=== PATIENT | male | born 1950 | race Caucasian/White ===

== ENCOUNTER 2017-02-20 10:25 | Inpatient (IN) | payer MEDICARE, BC ==
[~2017-02-20] VITALS: Ht 172.7 cm; Wt 63.3 kg
[2017-02-20] VITALS (10 sets, daily range): BP systolic 114–160; BP diastolic 62–87; PULSE 88–109; RESP 18–20; TEMP 96.6–98.8; O2SAT 99–100
[2017-02-20] MEDS ORDERED: BLOOD PRESSURE MED PO (10:41)
[2017-02-20] MEDS ORDERED: FISHCAP4 PO (10:41)
[2017-02-20] MEDS ORDERED: ASPI81TA11 PO (10:41)
[2017-02-20] MEDS ORDERED: CHOLESTEROL MED PO (10:41)
[2017-02-20] MEDS ORDERED: SODIUM CHLOR 0.9% 1000 ML INJ 1,000 ML IV ONE (10:55)
[2017-02-20] MEDS ORDERED: SODIUM CHLORIDE 0.9% FLUSH 10 ML FLUSH IVF PRN (11:00)
[2017-02-20 11:10] LABS: AUTOMATED NEUTROPHIL # 12.1 TH/MM3 (1.8-7.7); BASOPHIL % 0.3 % (0.0-2.0); EOSINOPHIL % 0.1 % (0.0-4.0); HEMATOCRIT 21.9 % (39.0-51.0); HEMO FLAGS DIFF FINAL; LYMPH % 7.4 % (9.0-44.0); MEAN CELL VOLUME 100.9 FL (80.0-100.0); MEAN CORPUSCULAR HEMOGLOBIN 34.8 PG (27.0-34.0); MEAN CORPUSCULAR HGB CONC 34.5 % (32.0-36.0); MONO % 5.9 % (0.0-8.0); NEUT % 86.3 % (16.0-70.0); PLATELET COUNT 242 TH/MM3 (150-450); RED BLOOD COUNT 2.17 MIL/MM3 (4.50-5.90); RED CELL DISTRIBUTION WIDTH 13.3 % (11.6-17.2); WHITE BLOOD COUNT 13.9 TH/MM3 (4.0-11.0)
[2017-02-20 11:19] LABS: CHLORIDE 105 MEQ/L (98-107); POTASSIUM 4.4 MEQ/L (3.5-5.1); SODIUM (NA) 137 MEQ/L (136-145)
[2017-02-20 11:22] LABS: APTT (PATIENT) 24.4 SEC (24.3-30.1); INTERNATIONAL NORMALIZED RATIO 0.9 RATIO; PROTHROMBIN TIME - PATIENT 10.4 SEC (9.8-11.6)
[2017-02-20 11:24] LABS: ANION GAP 10 MEQ/L (5-15); BICARBONATE 22.1 MEQ/L (21.0-32.0); BLOOD UREA NITROGEN 44 MG/DL (7-18)
[2017-02-20 11:27] LABS: ALT (GPT) 24 U/L (12-78); AST (GOT) 13 U/L (15-37); GLOMERULAR FILTRATION RATE 67 ML/MIN (>89)
[2017-02-20 11:29] LABS: TOTAL BILIRUBIN ADULT 0.4 MG/DL (0.2-1.0)
[2017-02-20 11:30] LABS: ALKALINE PHOSPHATASE 63 U/L (45-117)
--- NOTE | 2017-02-20 11:30 | RADHPO ---
EXAM DATE/TIME: 02/20/2017 11:15 [place] COMPARISON: No previous studies available for comparison. INDICATIONS : Patient states he has severe left leg pain and passed out this morning. MEDICAL HISTORY : None. SURGICAL HISTORY : None. ENCOUNTER: Initial ACUITY: 1 day PAIN SCORE: 8/10 LOCATION: Left Leg. FINDINGS: PA and lateral views of the chest demonstrate the lungs to be symmetrically aerated without evidence of mass, infiltrate or effusion. There is hyperaeration of both lung dougherty. The cardiomediastinal c ontours are unremarkable. Osseous structures are intact. CONCLUSION: No acute disease. Mirza Coelho MD on February 20, 2017 at 11:28 Board Certified Radiologist. This report was verified electronically.
[2017-02-20] MEDS ORDERED: SODIUM CHLOR 0.9% 250 ML INJ 250 ML IV ONE (12:00)
[2017-02-20] MEDS ORDERED: PANTOPRAZOLE INJ 80 MG in SODIUM CHLORIDE 0.9% INJ 35 ML IV ONE (12:00)
[2017-02-20] MEDS ORDERED: LORazepam 2 MG TAB PO PRN (12:15)
[2017-02-20] MEDS ORDERED: LORazepam 2 MG/ML VIAL IV PUSH PRN ×3 (12:15)
[2017-02-20] MEDS ORDERED: LORazepam 1 MG TAB PO PRN (12:15)
[2017-02-20] MEDS ORDERED: FLUMAZENIL 0.5 MG/5 ML VIAL IV PUSH PRN (12:15)
--- NOTE | 2017-02-20 12:26 | PD ---
HPI Chief Complaint: Pain: Acute or Chronic Time Seen by Provider: 10:42 Travel History International Travel<30 days: No Contact w/Intl Traveler<30days: No Traveled to known affect area: No History of Present Illness HPI Patient is a 66 year old male who comes in complaining of an episode of dizziness and sweating. 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 Per EMS, his pulse was 140 on arrival. He denies chest pain, but says he has some SOB, which he attributes to smoking. He has a long history of sciatic pain, which he has seen multiple doctors for. He denies any new injury, but says the pain has become worse over the past few days as he has increased his activity level. PFSH Past Medical History Cardiovascular Problems: Yes High Cholesterol: Yes Hypertension: Yes Medical other: Yes (SCIATICA) Influenza Vaccination: Yes Past Surgical History Other Surgery: Yes (VASTECTOMY) Social History Alcohol Use: Yes (DAILY WINE) Tobacco Use: Yes (3/4 PPD) Allergies-Medications (Allergen,Severity, Reaction): Coded Allergies: No Known Allergies (Unverified , 02/20/17) Reported Meds & Prescriptions Reported Meds & Active Scripts Active Reported [Blood Pressure Med] 1 Tab PO DAILY [Cholesterol Med] 1 Tab PO DAILY Aspirin EC (Aspirin) 81 Mg Tabdr 81 Mg PO DAILY Fish Oil + D3 (Fish Oil-Cholecalciferol) 1,200-1,000 Mg-Unit Cap 1 Cap PO DAILY Review of Systems Except as stated in HPI: all other systems reviewed are Neg General / Constitutional: No: Fever, Chills Eyes: No: Blurred Vision HENT: Positive: Lightheadedness, No: Headaches Cardiovascular: Positive: Palpitations, No: Chest Pain or Discomfort Respiratory: Positive: Shortness of Breath, No: Cough Gastrointestinal: No: Nausea, Vomiting, Abdominal Pain Musculoskeletal: Positive: Pain Skin: No Rash, No Change in Pigmentation Neurologic: Positive: Dizziness, No: Weakness Physical Exam Narrative GENERAL: Awake and alert, in no acute distress. SKIN: Focused skin assessment warm/dry. HEAD: Atraumatic. Normocephalic. EYES: Pupils equal and round. No scleral icterus. ENT: Mucous membranes pink and moist. NECK: Trachea midline. No JVD. CARDIOVASCULAR: Tachycardia. No murmur appreciated. RESPIRATORY: No accessory muscle use. Clear to auscultation. Breath sounds equal bilaterally. GASTROINTESTINAL: Abdomen soft, non-tender, nondistended. RECTAL: Bright red blood per rectum. No masses or tenderness. MUSCULOSKELETAL: No obvious deformities. No clubbing. No cyanosis. No edema. NEUROLOGICAL: Awake and alert. No obvious cranial nerve deficits. Motor grossly within normal limits. Normal speech. PSYCHIATRIC: Appropriate mood and affect; insight and judgment normal. Data Data Last Documented VS Vital Signs Date Time Temp Pulse Resp B/P Pulse Ox O2 Delivery O2 Flow Rate FiO2 02/20/17 11:04 100 Room Air 02/20/17 10:29 97.9 109 18 159/80 Orders Electrocardiogram (02/20/17 10:55) Complete Blood Count With Diff (02/20/17 10:55) Comprehensive Metabolic Panel (02/20/17 10:55) Troponin I (02/20/17 10:55) Act Partial Throm Time (Ptt) (02/20/17 10:55) Prothrombin Time / Inr (Pt) (02/20/17 10:55) Chest, Pa & Lat (02/20/17 10:55) Ecg Monitoring (02/20/17 10:55) Iv Access Insert/Monitor (02/20/17 10:55) Oximetry (02/20/17 10:55) Sodium Chloride 0.9% Flush (Ns Flush) (02/20/17 11:00) Sodium Chlor 0.9% 1000 Ml Inj (Ns 1000 M (02/20/17 10:55) Red Blood Cells (Rbc) (02/20/17 11:56) Blood Product Administration .UPON TRANSFUSION (02/20/17 11:56) Sodium Chlor 0.9% 250 Ml Inj (Ns 250 Ml (02/20/17 12:00) Type And Screen (02/20/17 11:56) Pantoprazole Inj (Protonix Inj) (02/20/17 12:00) Pantoprazole Inj (Protonix Inj) (02/20/17 12:00) Admit Order (Ed Use Only) (02/20/17 ) Labs Laboratory Tests Test 02/20/17 11:02 White Blood Count 13.9 TH/MM3 Red Blood Count 2.17 MIL/MM3 Hemoglobin 7.6 GM/DL Hematocrit 21.9 % Mean Corpuscular Volume 100.9 FL Mean Corpuscular Hemoglobin 34.8 PG Mean Corpuscular Hemoglobin 34.5 % Concent Red Cell Distribution Width 13.3 % Platelet Count 242 TH/MM3 Mean Platelet Volume 7.4 FL Neutrophils (%) (Auto) 86.3 % Lymphocytes (%) (Auto) 7.4 % Monocytes (%) (Auto) 5.9 % Eosinophils (%) (Auto) 0.1 % Basophils (%) (Auto) 0.3 % Neutrophils # (Auto) 12.1 TH/MM3 Lymphocytes # (Auto) 1.0 TH/MM3 Monocytes # (Auto) 0.8 TH/MM3 Eosinophils # (Auto) 0.0 TH/MM3 Basophils # (Auto) 0.0 TH/MM3 CBC Comment DIFF FINAL Differential Comment Prothrombin Time 10.4 SEC Prothromb Time International 0.9 RATIO Ratio Activated Partial 24.4 SEC Thromboplast Time Sodium Level 137 MEQ/L Potassium Level 4.4 MEQ/L Chloride Level 105 MEQ/L Carbon Dioxide Level 22.1 MEQ/L Anion Gap 10 MEQ/L Blood Urea Nitrogen 44 MG/DL Creatinine 1.10 MG/DL Estimat Glomerular Filtration 67 ML/MIN Rate Random Glucose 198 MG/DL Calcium Level 8.3 MG/DL Total Bilirubin 0.4 MG/DL Aspartate Amino Transf 13 U/L (AST/SGOT) Alanine Aminotransferase 24 U/L (ALT/SGPT) Alkaline Phosphatase 63 U/L Troponin I LESS THAN 0.02 NG/ML Total Protein 6.2 GM/DL Albumin 3.3 GM/DL [facility] Medical Decision Making Medical Screen Exam Complete: Yes Emergency Medical Condition: Yes Interpretation(s) ECG shows sinus tach at 104, frequent PVCs. Differential Diagnosis ACS vs dehydration vs GI bleed vs sciatic pain Narrative Course Patient is a 66-year-old male comes in after an episode of dizziness and diaphoresis. He also complains of sciatic pain in his leg. Patient is found to be tachycardic. IV established, labs sent. Labs show a hemoglobin of 7.6. Rectal exam performed shows bright red blood per rectum. Patient was given IV fluids. Given 2 units of blood. Started on Protonix. GI consulted. Patient admitted for further management. Diagnosis Primary Impression: GI bleed Qualified Code: K92.2 - Gastrointestinal hemorrhage, unspecified gastrointestinal hemorrhage type Admitting Information Admitting Physician Requests: Admit Condition: Stable Bessy Michele MD February 20, 2017 12:26
[2017-02-20] MEDS ORDERED: ONDANSETRON HCL 4 MG/2 ML VIAL IV PUSH PRN (12:30)
[2017-02-20] MEDS ORDERED: ENALAPRILAT 1.25 MG/ML VIAL IV PUSH PRN (12:30)
--- NOTE | 2017-02-20 12:37 | HHI.HP ---
[facility] Primary Care Physician Unknown Admission Diagnosis GI bleed Diagnoses: (1) GI bleed Diagnosis: Principal Chief Complaint: ' lightheadedness'. Travel History International Travel<30 Days: No Contact w/Intl Traveler <30 Da: No Traveled to Known Affected Are: No History of Present Illness patient is a 66 y/o male with history of hypertension and chronic low back pain who presented to ER with lightheadedness. he says that when he went to [facility] earlier today he started to feel dizzy and sweaty. he sat on a chair for a few minutes but when the symptoms didn't resolve he decided to come to ER. he denies any chest pain,abdominal pain, vomiting. he says that he's had some ' black stools' over the past one week. he says that he took two advil last night but he doesn't take NSAIDs as much. he admits to drinking two-three glasses of wine everyday. Review of Systems Constitutional: COMPLAINS OF: Diaphoretic episodes, Dizziness, DENIES: Fever, Weight loss, Chills, Night Sweats Eyes: DENIES: Blurred vision, Diplopia, Vision loss, Double Vision Ears, nose, mouth, throat: DENIES: Tinnitus, Vertigo, Throat pain, Epistaxis Respiratory: DENIES: Apneas, Cough, Snoring, Wheezing, Hemoptysis, Sputum production, Shortness of breath Cardiovascular: DENIES: Chest pain, Palpitations, Syncope, Dyspnea on Exertion , PND, Lower Extremity Edema, Orthopnea, Claudication Gastrointestinal: DENIES: Abdominal pain, Black stools, Bloody stools, Constipation, Diarrhea, Nausea, Vomiting, Difficulty Swallowing, Anorexia Genitourinary: DENIES: Urinary frequency, Urgency, Hematuria, Dysuria Musculoskeletal: DENIES: Joint pain, Muscle aches, Stiffness, Joint Swelling Integumentary: DENIES: Rash Neurologic: DENIES: Abnormal gait, Headache, Localized weakness, Paresthesias, Seizures, Speech Problems, Tremor, Poor Balance Psychiatric: DENIES: Anxiety, Confusion, Mood changes, Depression, Hallucinations, Agitation, Suicidal Ideation, Homicidal Ideation, Delusions Past Family Social History Past Medical History hypertension chronic low back pain Past Surgical History vasectomy. Reported Medications [Blood Pressure Med] 1 Tab PO DAILY [Cholesterol Med] 1 Tab PO DAILY Aspirin EC (Aspirin) 81 Mg Tabdr 81 Mg PO DAILY Fish Oil + D3 (Fish Oil-Cholecalciferol) 1,200-1,000 Mg-Unit Cap 1 Cap PO DAILY Allergies: Coded Allergies: No Known Allergies (Unverified , 02/20/17) Active Ordered Medications Current Medications Sodium Chloride 2 ml 2 ml UNSCH PRN IVF FLUSH AFTER USING IV ACCESS; Start at 11:00 Sodium Chloride 1,000 ml @ 1,000 mls/hr Q1H ONCE IV Last administered on t 11:30; Start 02/20/17 at 10:55; Stop 02/20/17 at 11:54; Status DC Sodium Chloride 250 ml @ 15 mls/hr ONCE ONCE IV ; Start 02/20/17 at 12:00; Stop 02/21/17 at 04:39 Pantoprazole Sodium 80 mg/ Sodium Chloride 100 ml @ 10 mls/hr CONTINUOUS IV ; Start 02/20/17 at 12:00 Pantoprazole Sodium/Sodium Chloride (Protonix Inj/NS Inj) 35 ml @ 420 mls/hr BOLUS ONCE IV ; Start 02/20/17 at 12:00; Stop 02/20/17 at 12:04; Status DC Family History heart disease in father. dementia in mother. Social History smokes 15 cigarettes a day- drinks two-three glasses of wine daily. Physical Exam Vital Signs Vital Signs Date Time Temp Pulse Resp B/P Pulse Ox O2 Delivery O2 Flow Rate FiO2 02/20/17 11:04 100 Room Air 02/20/17 10:29 97.9 109 18 159/80 100 Physical Exam GENERAL: This is a well-nourished, well-developed patient, in no apparent distress. SKIN: No rashes, ecchymoses or lesions. Cool and dry. HEAD: Atraumatic. Normocephalic. No temporal or scalp tenderness. EYES: pale conjunctivae ENT: Nose without bleeding, purulent drainage or septal hematoma. Throat without erythema, tonsillar hypertrophy or exudate. Uvula midline. Airway patent. NECK: Trachea midline. No JVD or lymphadenopathy. Supple, nontender, no meningeal signs. CARDIOVASCULAR: Regular rate and rhythm without murmurs, gallops, or rubs. RESPIRATORY: Clear to auscultation. Breath sounds equal bilaterally. No wheezes , rales, or rhonchi. GASTROINTESTINAL: Abdomen soft, non-tender, nondistended. No hepato-splenomegaly , or palpable masses. No guarding. MUSCULOSKELETAL: Extremities without clubbing, cyanosis, or edema. No joint tenderness, effusion, or edema noted. No calf tenderness. Negative Homans sign bilaterally. NEUROLOGICAL: Awake and alert. Cranial nerves II through XII intact. Motor and sensory grossly within normal limits. Five out of 5 muscle strength in all muscle groups. Normal speech. Laboratory Laboratory Tests Test 02/20/17 11:02 White Blood Count 13.9 Red Blood Count 2.17 Hemoglobin 7.6 Hematocrit 21.9 Mean Corpuscular Volume 100.9 Mean Corpuscular Hemoglobin 34.8 Mean Corpuscular Hemoglobin 34.5 Concent Red Cell Distribution Width 13.3 Platelet Count 242 Mean Platelet Volume 7.4 Neutrophils (%) (Auto) 86.3 Lymphocytes (%) (Auto) 7.4 Monocytes (%) (Auto) 5.9 Eosinophils (%) (Auto) 0.1 Basophils (%) (Auto) 0.3 Neutrophils # (Auto) 12.1 Lymphocytes # (Auto) 1.0 Monocytes # (Auto) 0.8 Eosinophils # (Auto) 0.0 Basophils # (Auto) 0.0 CBC Comment DIFF FINAL Differential Comment Prothrombin Time 10.4 Prothromb Time International 0.9 Ratio Activated Partial 24.4 Thromboplast Time Sodium Level 137 Potassium Level 4.4 Chloride Level 105 Carbon Dioxide Level 22.1 Anion Gap 10 Blood Urea Nitrogen 44 Creatinine 1.10 Estimat Glomerular Filtration 67 Rate Random Glucose 198 Calcium Level 8.3 Total Bilirubin 0.4 Aspartate Amino Transf 13 (AST/SGOT) Alanine Aminotransferase 24 (ALT/SGPT) Alkaline Phosphatase 63 Troponin I LESS THAN 0.02 Total Protein 6.2 Albumin 3.3 Result Diagram: 02/20/17 1102 02/20/17 1102 Imaging Last Impressions Chest X-Ray 02/20/17 1055 Signed Impressions: Service Date/Time: Monday, February 20, 2017 11:15 - CONCLUSION: No acute disease. Mirza Coelho MD Assessment and Plan Assessment and Plan A/P - GI bleed keep NPO and start on IV fluid- continue with PPI- will consult GI -anemia due to GI bleed/ alcohol abuse to receive two units of PRBC- continue to monitor H/H- anemia work-up; irone panel- vitamin B12/ folic acid level -history of hypertension; vasotec prn for now- will monitor BP -alcohol abuse; CIWA protocol- start thiamine. -DVT prophylaxis with SCD's Discussed Condition With ER physician and the patient. Physician Certification 2 Midnight Certification Type: Admission for Inpatient Services Order for Inpatient Services The services are ordered in accordance with Medicare regulations or non- Medicare payer requirements, as applicable. In the case of services not specified as inpatient-only, they are appropriately provided as inpatient services in accordance with the 2-midnight benchmark. Estimated LOS (days): 2 days is the estimated time the patient will need to remain in the hospital, assuming treatment plan goals are met and no additional complications. Post-Hospital Plan: Home Problem Qualifiers (1) GI bleed: Qualified Code: K92.2 - Gastrointestinal hemorrhage, unspecified gastrointestinal hemorrhage type Tab Deleon MD February 20, 2017 12:37 Tab Deleon MD February 20, 2017 12:37
[2017-02-20] MEDS: SODIUM CHLOR 0.9% 1000 ML INJ 1,000 ML IV SCH ×2 (13:02→22:47)
[2017-02-20] MEDS: PANTOPRAZOLE INJ 80 MG in SODIUM CHLORIDE 0.9% INJ 100 ML IV SCH (13:02)
[2017-02-20 14:56] LABS: FERRITIN 49 NG/ML (26-388); TRANSFERRIN IRON PROFILE 257 MG/DL (200-360)
[2017-02-20] MEDS: HYDROmorphone HCL PF 1 MG/ML VIAL IV PRN ×2 (16:30→22:42)
[2017-02-20] MEDS: LORazepam 2 MG/ML VIAL IV PUSH PRN ×2 (16:30→22:44)
[2017-02-20] MEDS: THIAMINE INJ 100 MG in SODIUM CHLORIDE 0.9% INJ 100 ML IV SCH (18:31)
[2017-02-20] MEDS ORDERED: PEG (High)/E-LYTE SOLN 4000 ML BTL PO ONE (20:30)
[2017-02-21] VITALS: BP 111/58; PULSE 76; RESP 18; TEMP 97.9; O2SAT 98
[2017-02-21] MEDS: PANTOPRAZOLE INJ 80 MG in SODIUM CHLORIDE 0.9% INJ 100 ML IV SCH ×2 (00:50→12:42)
[2017-02-21 04:00] VITALS: BP 128/68; PULSE 88; RESP 20; TEMP 98.1; O2SAT 96
[2017-02-21 06:57] LABS: AUTOMATED NEUTROPHIL # 5.2 TH/MM3 (1.8-7.7); BASOPHIL % 0.5 % (0.0-2.0); EOSINOPHIL # 0.1 TH/MM3 (0-0.4); EOSINOPHIL % 1.1 % (0.0-4.0); HEMATOCRIT 23.3 % (39.0-51.0); HEMO FLAGS DIFF FINAL; LYMPH % 22.1 % (9.0-44.0); LYMPHOCYTE # 1.8 TH/MM3 (1.0-4.8); MEAN CELL VOLUME 95.4 FL (80.0-100.0); MEAN CORPUSCULAR HEMOGLOBIN 32.5 PG (27.0-34.0); MONO % 12.3 % (0.0-8.0); PLATELET COUNT 157 TH/MM3 (150-450); RED BLOOD COUNT 2.44 MIL/MM3 (4.50-5.90); RED CELL DISTRIBUTION WIDTH 15.8 % (11.6-17.2); WHITE BLOOD COUNT 8.1 TH/MM3 (4.0-11.0)
[2017-02-21 07:05] VITALS: BP 129/65; PULSE 78; RESP 20; TEMP 98.3; O2SAT 97
[2017-02-21 07:25] LABS: BICARBONATE 23.9 MEQ/L (21.0-32.0); POTASSIUM 3.2 MEQ/L (3.5-5.1)
--- NOTE | 2017-02-21 08:14 | GIPROC ---
[facility] [address] [place] [address], [id number] EGD PROCEDURE REPORT EXAM DATE: 02/21/2017 PATIENT NAME: Dariel Ordonez MR #: [id number] BIRTHDATE: 1950 ATTENDING: David Segovia MD ORDER #: [id number] MEETING COORDINATOR: Shawna Velasco and Graeme Leiva STATUS: inpatient INDICATIONS: The patient is a 66 yr old male here for an EGD due to anemia and melena PROCEDURE PERFORMED: EGD w/ biopsy MEDICATIONS: None and Per Anesthesia. TOPICAL ANESTHETIC: none CONSENT: The patient understands the risks and benefits of the procedure and understands that these risks include, but are not limited to: sedation, allergic reaction, infection, perforation and/or bleeding. Alternative means of evaluation and treatment include, among others: physical exam, x-rays, and/or surgical intervention. The patient elects to proceed with this endoscopic procedure. medical equipment was checked for proper function. Hand hygiene and appropriate measures for infection prevention was taken. After the risks, benefits and alternatives of the procedure were thoroughly explained, Informed consent was verified, confirmed and timeout was successfully executed by the treatment team. The patient was anesthetized with topical anesthesia and the EC-[id number] (Pedi C) endoscope was introduced through the mouth and advanced to the second portion of the duodenum. Retroflexed views revealed no abnormalities The gastroscope was then slowly withdrawn and removed. Duodenal ulcer in the bulb no sign of active bleed now. Gastritis Bx from antrum. ADVERSE EVENTS: There were no complications. IMPRESSIONS: 1. Duodenal ulcer in the bulb no sign of active bleed now 2. Gastritis Bx from antrum 3. Retroflexed views revealed no abnormalities RECOMMENDATIONS: 1. Await biopsy results. Biopsy results will not be ready for 7-10 days. If you don't hear from us in two weeks, call our office for biopsy results. 2. Continue PPI 3. Avoid NSAIDS 4. No ETOH PATIENT CONDITION: stable DISPOSITION: Inpatient REPEAT EXAM: Return as needed for EGD David Segovia MD eSigned: David Segovia MD 02/21/2017 8:14 AM cc: PATIENT NAME: Dariel Ordonez MR#: [id number]
[2017-02-21] MEDS: SODIUM CHLOR 0.9% 1000 ML INJ 1,000 ML IV SCH ×2 (08:15→12:42)
--- NOTE | 2017-02-21 08:25 | HHI.GIFU ---
Subjective Remarks feels ok, stated no more bleeding since last night, took the prep well Objective Vitals I&O Vital Signs Date Time Temp Pulse Resp B/P Pulse Ox O2 Delivery O2 Flow Rate FiO2 02/21/17 07:05 98.3 78 20 129/65 97 02/21/17 04:00 98.1 88 20 128/68 96 02/21/17 00:00 97.9 76 18 111/58 98 02/20/17 20:44 97.0 88 20 148/72 02/20/17 20:00 97.8 97 20 114/62 100 02/20/17 19:37 98.8 100 20 149/87 99 02/20/17 17:00 18 02/20/17 16:15 98.5 105 18 146/69 100 02/20/17 16:00 97.1 96 19 155/64 100 02/20/17 15:52 96.6 101 18 152/75 99 02/20/17 13:06 105 144/69 02/20/17 12:28 96 20 160/73 100 02/20/17 11:04 100 Room Air 02/20/17 10:29 97.9 109 18 159/80 100 I/O 02/20/17 02/20/17 02/20/17 02/21/17 02/21/17 02/21/17 07:00 15:00 23:00 07:00 15:00 23:00 Intake Total 4850 ml 0 ml Balance 4850 ml 0 ml Intake Oral 3000 ml 0 ml IV Total 1500 ml Packed Cells 350 ml # Voids 1 6 # Bowel Movements 1 10 Laboratory Laboratory Tests Test 02/20/17 02/20/17 02/20/17 02/21/17 11:02 12:15 12:29 06:40 White Blood Count 13.9 8.1 Red Blood Count 2.17 2.44 Hemoglobin 7.6 7.9 Hematocrit 21.9 23.3 Mean Corpuscular Volume 100.9 95.4 Mean Corpuscular Hemoglobin 34.8 32.5 Mean Corpuscular Hemoglobin 34.5 34.0 Concent Red Cell Distribution Width 13.3 15.8 Platelet Count 242 157 Mean Platelet Volume 7.4 7.4 Neutrophils (%) (Auto) 86.3 64.0 Lymphocytes (%) (Auto) 7.4 22.1 Monocytes (%) (Auto) 5.9 12.3 Eosinophils (%) (Auto) 0.1 1.1 Basophils (%) (Auto) 0.3 0.5 Neutrophils # (Auto) 12.1 5.2 Lymphocytes # (Auto) 1.0 1.8 Monocytes # (Auto) 0.8 1.0 Eosinophils # (Auto) 0.0 0.1 Basophils # (Auto) 0.0 0.0 CBC Comment DIFF FINAL DIFF FINAL Differential Comment Prothrombin Time 10.4 Prothromb Time International 0.9 Ratio Activated Partial 24.4 Thromboplast Time Sodium Level 137 Potassium Level 4.4 Chloride Level 105 Carbon Dioxide Level 22.1 Anion Gap 10 Blood Urea Nitrogen 44 Creatinine 1.10 Estimat Glomerular Filtration 67 Rate Random Glucose 198 Calcium Level 8.3 Iron Level 109 Total Iron Binding Capacity 360 Percent Iron Saturation 30.3 Ferritin 49 Total Bilirubin 0.4 Aspartate Amino Transf 13 (AST/SGOT) Alanine Aminotransferase 24 (ALT/SGPT) Alkaline Phosphatase 63 Troponin I LESS THAN 0.02 Total Protein 6.2 Albumin 3.3 Vitamin B12 Level 345 Folate 13.4 Blood Type O POSITIVE O POSITIVE Antibody Screen NEGATIVE Crossmatch Leukocyte-Reduced Red Blood Cells Blood Bank Comment Physical Exam HEENT: Pupils round and reactive to light; normocephalic; atraumatic; no jaundice. Throat is clear. NECK: Neck is supple, no JVD, no lymphadenopathy. CHEST: Chest is clear to auscultation and percussion. CARDIAC: Regular rate and rhythm with no murmur gallop or rubs. ABDOMEN: Soft, nondistended, nontender; no hepatosplenomegaly; bowel sounds are present in all four quadrants. EXTREMITIES: No clubbing, cyanosis, or edema. SKIN: Normal; no rash; no jaundice. CRISIS MENTAL HEALTH THERAPIST: No focal deficits; alert and oriented times three. Assessment and Plan Plan GI bleed, none today, EGD showed gastritis and duodenal ulcer, colon showed multiple polyps and diverticolosis recommendation start liquid diet advance as tolerated monitor HH PRBC if needed no NSAIDs no ETOH David Segovia MD February 21, 2017 08:25
[2017-02-21] MEDS ORDERED: PROPOFOL 200 MG/20 ML AMP IV ONE (08:50)
--- NOTE | 2017-02-21 09:44 | EKG ---
Date Performed: 02/20/2017 Time Performed: 11:25:02 PTAGE: 66 years EKG: Sinus tachycardia with PVC(s) Inferior/lateral ST-T changes are nonspecific Borderline ECG NO PREVIOUS TRACING DOCTOR: Travon Corona Interpretating Date/Time 02/21/2017 09:42:05
[2017-02-21] MEDS ORDERED: POTASSIUM CHLOR 20 MEQ PREMIX 100 ML IV ONE (10:45)
--- NOTE | 2017-02-21 10:49 | HHI.PR ---
Subjective Remarks resting comfortably. feels better today. no rectal bleed. no further dizziness. denies chest pain or sob. Objective Vitals Vital Signs Date Time Temp Pulse Resp B/P Pulse Ox O2 Delivery O2 Flow Rate FiO2 02/21/17 08:40 88 16 138/78 100 02/21/17 08:30 80 18 139/69 100 02/21/17 08:20 98.4 95 18 131/73 97 02/21/17 07:05 98.3 78 20 129/65 97 02/21/17 04:00 98.1 88 20 128/68 96 02/21/17 00:00 97.9 76 18 111/58 98 02/20/17 20:44 97.0 88 20 148/72 02/20/17 20:00 97.8 97 20 114/62 100 02/20/17 19:37 98.8 100 20 149/87 99 02/20/17 17:00 18 02/20/17 16:15 98.5 105 18 146/69 100 02/20/17 16:00 97.1 96 19 155/64 100 02/20/17 15:52 96.6 101 18 152/75 99 02/20/17 13:06 105 144/69 02/20/17 12:28 96 20 160/73 100 02/20/17 11:04 100 Room Air I/O 02/20/17 02/20/17 02/20/17 02/21/17 02/21/17 02/21/17 07:00 15:00 23:00 07:00 15:00 23:00 Intake Total 4850 ml 500 ml Balance 4850 ml 500 ml Intake Oral 3000 ml 0 ml IV Total 1500 ml Packed Cells 350 ml Other 500 ml # Voids 1 6 # Bowel Movements 1 10 Result Diagram: 02/21/17 0640 02/21/17 0640 Imaging Last Impressions Chest X-Ray 02/20/17 1055 Signed Impressions: Service Date/Time: Monday, February 20, 2017 11:15 - CONCLUSION: No acute disease. Mirza Coelho MD Objective Remarks GENERAL: This is a well-nourished, well-developed patient, in no apparent distress. CARDIOVASCULAR: Regular rate and regular rhythm without murmurs, gallops, or rubs. RESPIRATORY: Clear to auscultation. Breath sounds equal bilaterally. No wheezes , rales, or rhonchi. GASTROINTESTINAL: Abdomen soft, non-tender, nondistended. Normal, active bowel sounds MUSCULOSKELETAL: Extremities without clubbing, cyanosis, or edema. NEURO: Alert & Oriented x4 to person, place, time, situation. Moves all ext x4 Procedures EGD Medications and IVs Current Medications Sodium Chloride 2 ml 2 ml UNSCH PRN IVF FLUSH AFTER USING IV ACCESS; Start at 11:00 Sodium Chloride 1,000 ml @ 1,000 mls/hr Q1H ONCE IV Last administered on 11:30; Start 02/20/17 at 10:55; Stop 02/20/17 at 11:54; Status DC Sodium Chloride 250 ml @ 15 mls/hr ONCE ONCE IV Last administered on 12:00; Start 02/20/17 at 12:00; Stop 02/21/17 at 04:39; Status DC Pantoprazole Sodium 80 mg/ Sodium Chloride 100 ml @ 10 mls/hr CONTINUOUS IV Last administered on 02/21/17 00:50; Start 02/20/17 at 12:00 Pantoprazole Sodium 80 mg/ Sodium Chloride 35 ml @ 420 mls/hr BOLUS ONCE IV Last administered on 02/20/17 12:56; Start 02/20/17 at 12:00; Stop 02/20/17 at 12:04; Status DC Sodium Chloride (NS 1000 ml Inj) 1,000 ml @ 100 mls/hr Q10H IV Last administered on 02/21/17 08:15; Start 02/20/17 at 12:15 Flumazenil (Romazicon Inj) 0.2 mg Q1M PRN IV PUSH SEE LABEL COMMENTS; Start at 12:15 Lorazepam (Ativan) 1 mg Q4H PRN PO CIWA 8 - 10; Start 02/20/17 at 12:15 Lorazepam (Ativan Inj) 1 mg Q4H PRN IV PUSH CIWA 8 - 10 Last administered on 22:44; Start 02/20/17 at 12:15 Lorazepam (Ativan) 2 mg Q2H PRN PO CIWA 11-14; Start 02/20/17 at 12:15 Lorazepam (Ativan Inj) 2 mg Q2H PRN IV PUSH CIWA 11-14; Start 02/20/17 at 12:15 Lorazepam (Ativan Inj) 2 mg Q1H PRN IV PUSH CIWA 15-20; Start 02/20/17 at 12:15 Lorazepam 2 mg 2 mg Q15M PRN IV PUSH CIWA > 20; Start 02/20/17 at 12:15 Thiamine HCl/ Sodium Chloride (Thiamine Inj/NS Inj) 101 ml @ 101 mls/hr DAILY IV Last administered on 02/20/17 18:31; Start 02/20/17 at 14:30 Enalaprilat (Vasotec Inj) 1.25 mg Q8H PRN IV PUSH SBP>180, DBP>110; Start at 12:30 Ondansetron HCl (Zofran Inj) 4 mg Q8HR PRN IV PUSH NAUSEA; Start 02/20/17 at 12 :30 Hydromorphone HCl (Dilaudid Pf Inj) 0.2 mg Q4H PRN IV PAIN Last administered on 02/20/17 22:42; Start 02/20/17 at 15:30 Polyethylene Glycol/ Electrolytes (Colyte Liq) 4,000 ml ONCE ONCE PO Last administered on 02/20/17 20:41; Start 02/20/17 at 20:30; Stop 02/20/17 at 20:31 ; Status DC Propofol (Diprivan 200 Mg/20 ml Inj) 1,000 mg STK-MED ONCE IV ; Start 02/21/17 at 08:50; Stop 02/21/17 at 08:51; Status DC A/P Assessment and Plan A/P - GI bleed GI consult appreciated- s/p EGD with duodenal ulcer and gastritis- biopsy pending. continue PPI. -anemia due to GI bleed/ alcohol abuse s/p PRBC transfusion- continue to monitor H/H- -history of hypertension; vasotec prn for now- will monitor BP -alcohol abuse; CIWA protocol- started thiamine. advised to stop drinking. -DVT prophylaxis with SCD's Discharge Planning dc home later today or in am if H/H stable. see med list. advised to stop drinking. f/u; pcp and GI. d/w the patient and his . Tab Deleon MD February 21, 2017 10:49
[2017-02-21] MEDS ORDERED: PROT40TA PO (10:50)
--- NOTE | 2017-02-21 10:50 | HHI.DCPOC ---
Discharge Care Plan Diagnosis: (1) GI bleed Your Health Problems Are: Bleeding Tendency Goals to Promote Your Health * To prevent worsening of your condition and complications * To maintain your health at the optimal level Directions to Meet Your Goals Take your medications as prescribed Follow your dietary instruction Follow activity as directed Keep your appointments as scheduled Take your immunizations and boosters as scheduled If your symptoms worsen call your PCP, if no PCP go to Urgent Care Center or Emergency Room Smoking is Dangerous to Your Health. Avoid second hand smoke Call the 24-hour hour crisis hotline for domestic abuse at Tab Deleon MD February 21, 2017 10:50
--- NOTE | 2017-02-21 10:51 | HHI.DS ---
Discharge Summary Admission Date February 20, 2017 at 12:11 Discharge Date: February 21, 2017 Admitting Diagnosis GI bleed (1) GI bleed ICD Code: K92.2 Diagnosis: Principal Procedures EGD Brief History - From Admission patient is a 66 y/o male with history of hypertension and chronic low back pain who presented to ER with lightheadedness. he says that when he went to [facility] earlier today he started to feel dizzy and sweaty. he sat on a chair for a few minutes but when the symptoms didn't resolve he decided to come to ER. he denies any chest pain,abdominal pain, vomiting. he says that he's had some ' black stools' over the past one week. he says that he took two advil last night but he doesn't take NSAIDs as much. he admits to drinking two-three glasses of wine everyday. CBC/BMP: 02/21/17 0640 02/21/17 0640 Significant Findings Laboratory Tests Test 02/20/17 02/21/17 11:02 06:40 White Blood Count 13.9 TH/MM3 (4.0-11.0) Red Blood Count 2.17 MIL/MM3 2.44 MIL/MM3 (4.50-5.90) (4.50-5.90) Hemoglobin 7.6 GM/DL 7.9 GM/DL (13.0-17.0) (13.0-17.0) Hematocrit 21.9 % 23.3 % (39.0-51.0) (39.0-51.0) Mean Corpuscular Volume 100.9 FL (80.0-100.0) Mean Corpuscular Hemoglobin 34.8 PG (27.0-34.0) Neutrophils (%) (Auto) 86.3 % (16.0-70.0) Lymphocytes (%) (Auto) 7.4 % (9.0-44.0) Neutrophils # (Auto) 12.1 TH/MM3 (1.8-7.7) Blood Urea Nitrogen 44 MG/DL (7-18) 23 MG/DL (7-18) Estimat Glomerular Filtration 67 ML/MIN (>89) Rate Random Glucose 198 MG/DL (74-106) Calcium Level 8.3 MG/DL 7.1 MG/DL (8.5-10.1) (8.5-10.1) Aspartate Amino Transf 13 U/L (15-37) (AST/SGOT) Troponin I LESS THAN 0.02 NG/ML (0.02-0.05) Total Protein 6.2 GM/DL (6.4-8.2) Albumin 3.3 GM/DL (3.4-5.0) Monocytes (%) (Auto) 12.3 % (0.0-8.0) Monocytes # (Auto) 1.0 TH/MM3 (0-0.9) Potassium Level 3.2 MEQ/L (3.5-5.1) Chloride Level 113 MEQ/L (98-107) Imaging Last Impressions Chest X-Ray 02/20/17 1055 Signed Impressions: Service Date/Time: Monday, February 20, 2017 11:15 - CONCLUSION: No acute disease. Mirza Coelho MD PE at Discharge GENERAL: This is a well-nourished, well-developed patient, in no apparent distress. CARDIOVASCULAR: Regular rate and regular rhythm without murmurs, gallops, or rubs. RESPIRATORY: Clear to auscultation. Breath sounds equal bilaterally. No wheezes , rales, or rhonchi. GASTROINTESTINAL: Abdomen soft, non-tender, nondistended. Normal, active bowel sounds MUSCULOSKELETAL: Extremities without clubbing, cyanosis, or edema. NEURO: Alert & Oriented x4 to person, place, time, situation. Moves all ext x4 Hospital Course - GI bleed GI consult appreciated- s/p EGD with duodenal ulcer and gastritis- biopsy pending. continue PPI. -anemia due to GI bleed/ alcohol abuse s/p PRBC transfusion- continue to monitor H/H- -history of hypertension; vasotec prn for now- will monitor BP -alcohol abuse; CIWA protocol- started thiamine. advised to stop drinking. -DVT prophylaxis with SCD's Pt Condition on Discharge: Good Discharge Disposition: Discharge Home Discharge Time: <= 30 minutes Discharge Instructions DIET: Follow Instructions for: Heart Healthy Diet Activities you can perform: Regular-No Restrictions Follow up Referrals: Gastroenterology PCP Follow-up New Medications: Multivitamin (Men's Multi-Vitamin) 1 Each Tablet 1 TAB PO DAILY vitamin Days 30 Ref 0 TAB Pantoprazole (Protonix) 40 Mg Tab 40 MG PO DAILY Reflux #30 Ref 0 TAB Thiamine HCl (Thiamine HCl) 100 Mg Tablet 100 MG PO DAILY vitamin Days 30 Ref 0 TAB Continued Medications: Fish Oil-Cholecalciferol (Fish Oil + D3) 1,200-1,000 Mg-Unit Cap 1 CAP PO DAILY Nutritional Supplement #30 Ref 0 CAP ([Blood Pressure Med]) 1 TAB PO DAILY ([Cholesterol Med]) 1 TAB PO DAILY Discontinued Medications: Aspirin DR (Aspirin EC) 81 Mg Tabdr 81 MG PO DAILY Ref 0 TAB Tab Deleon MD February 21, 2017 10:51
[2017-02-21] MEDS ORDERED: THIA100T5 PO (10:54)
[2017-02-21] MEDS ORDERED: MULT-267 PO (10:54)
[2017-02-21 11:31] LABS: CALCIUM-PROTEIN CORRECTED 8.2 MG/DL (8.5-10.1)
[2017-02-21 12:00] VITALS: BP 100/56; PULSE 108; RESP 20; TEMP 97.5; O2SAT 95
[2017-02-21 12:35] LABS: HEMATOCRIT 26.1 % (39.0-51.0)
[2017-02-21] MEDS: THIAMINE INJ 100 MG in SODIUM CHLORIDE 0.9% INJ 100 ML IV SCH (12:42)
[2017-02-21 16:00] VITALS: BP 110/61; PULSE 101; RESP 20; TEMP 98.5; O2SAT 96
--- NOTE | 2017-02-22 06:10 | MB ---
cc: CRISTIANE KHAN M.D. DATE OF CONSULTATION 02/20/2017 DATE OF 1950 REASON FOR REFERRAL Anemia and GI bleed. Thank you for the consultation. HISTORY OF PRESENT ILLNESS A pleasant 66-year-old gentleman who has significant back pain, hypertension. The patient came because of lightheadedness and fatigue. He was found dizzy and sweaty in [facility] and he decided to come to the emergency room. The patient complained of rectal bleeding, black, tarry stool in the last few weeks. He drinks a significant amount of alcohol. He took a few Advil recently. PAST MEDICAL HISTORY Significant for - 1. Chronic low back pain. 2. Hypertension SURGERY Vasectomy. MEDICATIONS Reviewed in the chart. ALLERGIES No known drug allergies. PAST MEDICAL HISTORY Significant for hypertension and back pain. FAMILY HISTORY Dementia and heart disease. SOCIAL HISTORY Positive for tobacco with significant amount of alcohol. No drugs. PHYSICAL EXAMINATION GENERAL: Alert, oriented, in no acute distress, fatigue. VITAL SIGNS: Stable. HEENT: Pupils are round, reactive to light. NECK: Supple. CHEST: Clear to auscultation and precaution. CARDIAC: Regular rate and rhythm at this time. ABDOMEN: Soft, nondistended. Positive bowel sounds. EXTREMITIES: No edema, clubbing or cyanosis. NEUROLOGIC: Intact. PSYCHOLOGICAL: Appropriate. RECTAL EXAM: Maroon stool. LABORATORY DATA White count 13.9, hemoglobin 7.6, platelets 242. INR 0.9. AST 13, ALT 24, alk phos 63, total bilirubin 0.4, BUN 44, creatinine 1.10. ASSESSMENT AND PLAN A pleasant 66-year-old gentleman who has significant anemia, GI bleed, possibly upper but because of his age I recommend doing upper endoscopy and colonoscopy. We discussed the procedures, complication, alternatives and limitations. He agreed to have it done. This will be done tomorrow. Meanwhile we will start Protonix and we will give him packed RBC as needed. We will prep him with GoLYTELY and we will monitor with you. MD MASTER Jauregui/CAREY /7:16 PM /5:59 AM
--- NOTE | 2017-02-23 11:46 | PQ ---
Physician Query Response Document PATIENT: KAVON BLANK : 1950 ADMIT DATE: 02/20/2017 12:11 PM DISCH DATE: 02/21/2017 3:55 PM RESPONDING PROVIDER #: [email or web address] QUERY TEXT: Acuity Specificity Anemia due to GI Bleed is documented in the Medical Record. Please specify the acuity of this conditi on with terms such as: -- Acute -- Chronic -- Acute and chronic -- Acute on chronic -- Other (please specify in the medical record) Your prompt response is appreciated, please do not hesitate to contact the [facility]/Coding Hotline with an y questions, comments and/or concerns you may have at ext. [phone]. The patient's Clinical Indicators include: Anemia due to GI Bleed/alcohol abuse: H Patient with black stools over past week: H H Transfused 2 units PRBC 02/20 Query created by: Palak Poon on 02/23/2017 7:44 AM RESPONSE TEXT: Acute on possbile chronic anemia- due to GI bleed. QUERY TEXT: Clarification of Clinical Diagnostic Findings Please clarify documentation or clinical relevance for the clinical / diagnostic findings or whether those are insignificant or unable to be further specified. After study, are you able to identify the source of the patient's GI Bleed? Duodenal Ulcer Colon Polyps Gastric origin Other Your prompt response is appreciated, please do not hesitate to contact the [facility]/Coding Hotline with an y questions, comments and/or concerns you may have at ext. [phone]. The patient's Clinical Indicators include: Gi Bleed. Black stools for past week: H Anemia due to GI bleed/alcohol abuse: H Duodenal ulcer, colon polypys, Gastritis: EGD, Colonoscopy 02/21 Telangiectasia and vascular congestion from gastric biopsy: Path Report Query created by: Palak Poon on 02/23/2017 7:49 AM RESPONSE TEXT: GI bleed likely due to Peptic Ulcer Disease. Electronically signed by: Tab Deleon MD 02/23/2017 11:42 AM
== END 2017-02-21 15:55 | disposition home or self-care (01) | DRG 378 ==
LOC: PHED 10:25 → PHEDA 12:11 → PH3A 14:36
PROVIDERS: ADMIT Internal Medicine; ATTEND Internal Medicine
PROC: 30233N1 Transfusion of Nonautologous Red Blood Cells into Peripheral Vein, Percutaneous Approach (ICD-10-PCS; 2017-02-20)
PROC: 0DB78ZX Excision of Stomach, Pylorus, Via Natural or Artificial Opening Endoscopic, Diagnostic (ICD-10-PCS; principal; 2017-02-21 07:30)
PROC: 0DBE8ZX Excision of Large Intestine, Via Natural or Artificial Opening Endoscopic, Diagnostic (ICD-10-PCS; 2017-02-21 07:30)
DX: K26.4 Chronic or unspecified duodenal ulcer with hemorrhage (principal); D62 Acute posthemorrhagic anemia; I10 Essential (primary) hypertension; D12.3 Benign neoplasm of transverse colon; F10.10 Alcohol abuse, uncomplicated; K63.5 Polyp of colon; K29.70 Gastritis, unspecified, without bleeding; E78.00 Pure hypercholesterolemia, unspecified; M54.5 Low back pain; G89.29 Other chronic pain; F17.210 Nicotine dependence, cigarettes, uncomplicated
CPT/HCPCS: 36430; 71020; 80048; 80053; 82607; 82728; 82746; 83540; 83550; 84155; 84484; 85014; 85018; 85025; 85610; 85730; 86850; 86900; 86901; 86920; 88305; 93005; 96360; C9113; J1170; J2060; J3411; J3480; J7030; J7050; P9016

== ENCOUNTER 2017-02-24 10:21 | Emergency (ER) | payer MEDICARE, BC ==
[~2017-02-24] VITALS: Ht 172.7 cm; Wt 65.0 kg
[~2017-02-24 10:21] MED LIST: BLOOD PRESSURE MED PO; CHOLESTEROL MED PO; FISHCAP4 PO; MULT-267 PO; PROT40TA PO; THIA100T5 PO
[2017-02-24 10:22] VITALS: BP 128/72; PULSE 79; RESP 15; TEMP 97.9; O2SAT 99
--- NOTE | 2017-02-24 11:29 | PD ---
HPI Chief Complaint: Edema Time Seen by Provider: 10:34 Travel History International Travel<30 days: No Contact w/Intl Traveler<30days: No Traveled to known affect area: No History of Present Illness HPI 66 yo M c/o RLE nontender swelling since waking up this morning. He notes minimal swelling in legs bilaterally for a couple days since hospital discharge following admission for GI bleed however today there is marked R > L swelling. No hx DVT. No anticoagulant. No sob/cp. No fever. No similar prior. PFSH Past Medical History Cancer: No Cardiovascular Problems: Yes High Cholesterol: Yes Diminished Hearing: No Endocrine: No Gastrointestinal Disorders: Yes (TODAY IN ED BLOOD IN STOOL.) Genitourinary: No Hypertension: Yes Immune Disorder: No Musculoskeletal: Yes (HIP PAIN) Neurologic: No Psychiatric: No Reproductive: No Respiratory: No Tetanus Vaccination: Unknown Influenza Vaccination: Yes ?: Not Past Surgical History Other Surgery: Yes (VASTECTOMY) Social History Alcohol Use: Yes (DAILY WINE) Tobacco Use: Yes (/ PPD) Substance Use: No Allergies-Medications (Allergen,Severity, Reaction): Coded Allergies: No Known Allergies (Unverified , 02/20/17) Reported Meds & Prescriptions Reported Meds & Active Scripts Active Men's Multi-Vitamin (Multivitamin) 1 Each Tablet 1 Tab PO DAILY 30 Days Thiamine HCl 100 Mg Tablet 100 Mg PO DAILY 30 Days Protonix (Pantoprazole Sodium) 40 Mg Tab 40 Mg PO DAILY Reported [Blood Pressure Med] 1 Tab PO DAILY [Cholesterol Med] 1 Tab PO DAILY Fish Oil + D3 (Fish Oil-Cholecalciferol) 1,200-1,000 Mg-Unit Cap 1 Cap PO DAILY Review of Systems Except as stated in HPI: all other systems reviewed are Neg Physical Exam Narrative GENERAL: 66 yo M, WNWD, NAD, speaking full sentences SKIN: Warm and dry. HEAD: Atraumatic. Normocephalic. EYES: Pupils equal and round. No scleral icterus. No injection or drainage. ENT: No nasal bleeding or discharge. Mucous membranes pink and moist. NECK: Trachea midline. No JVD. CARDIOVASCULAR: Regular rate and rhythm. RESPIRATORY: No accessory muscle use. Clear to auscultation. Breath sounds equal bilaterally. GASTROINTESTINAL: Abdomen soft, non-tender, nondistended. Hepatic and splenic margins not palpable. MUSCULOSKELETAL: R>L edema, 1+ pitting. No gross deformity otherwise. NEUROLOGICAL: Awake and alert. No obvious cranial nerve deficits. Motor grossly within normal limits. Five out of 5 muscle strength in the arms and legs. Normal speech. PSYCHIATRIC: Appropriate mood and affect; insight and judgment normal. Data Data Last Documented VS Vital Signs Date Time Temp Pulse Resp B/P Pulse Ox O2 Delivery O2 Flow Rate FiO2 02/24/17 10:22 97.9 79 15 128/72 99 Orders Us Leg Venous Doppler Bilat (02/24/17 ) MDM Medical Decision Making Medical Screen Exam Complete: Yes Emergency Medical Condition: Yes Medical Record Reviewed: Yes Differential Diagnosis DVT, cellulitis, venous insufficiency, volume overload Narrative Course Lower extremity ultrasound without DVT. Results d/w pt. Pt reassured. Diagnosis Primary Impression: Edema Qualified Code: R60.9 - Edema, unspecified type Referrals: Ree Pierce MD call for appointment Additional Instructions: You have a choice when it comes to health care, and we are glad that you chose [facility]. Hopefully, we have met your expectations on today's visit. You are welcome to return to [facility] at any time, as we are committed to meeting the health care needs of our community. Med/Other Pt SpecificInfo: No Change to Meds Disposition: 01 DISCHARGE HOME Condition: Grady Whittaker MD Feb 24, 2017 11:29
--- NOTE | 2017-02-24 12:13 | RADHPO ---
EXAM DATE/TIME: 02/24/2017 11:25 [facility] COMPARISON: No previous studies available for comparison. INDICATIONS : Bilateral leg swelling. MEDICAL HISTORY : Hypercholesterolemia. Hypertension. Cardiac disorders. Bleeding ulcer. Blood in stool. Hip pain. SURGICAL HISTORY : Vasectomy. ENCOUNTER: Initial ACUITY: 2 day PAIN SCORE: 0/10 LOCATION: Bilateral leg. TECHNIQUE: Venous ultrasound of the left and right leg was performed from the inguinal ligament to the proximal calf. Real-time, color Doppler and spectral tracing, compression and augmentation techniques were us ed. FINDINGS: RIGHT LEG: There is normal compressibility of the deep venous system from the inguinal region to the proximal ca lf. No echogenic clot is seen in the lumen of the common femoral, femoral, popliteal, and posterior tibial veins. There is a normal response of the venous system to proximal and distal augmentation an d respiration. LEFT LEG: There is normal compressibility of the deep venous system from the inguinal region to the proximal ca lf. No echogenic clot is seen in the lumen of the common femoral, femoral, popliteal, and posterior tibial veins. There is a normal response of the venous system to proximal and distal augmentation an d respiration. CONCLUSION: No evidence of lower extremity DVT on the right or left. Nikhil Ramirez MD on February 24, 2017 at 12:10 Board Certified Radiologist. This report was verified electronically.
== END 2017-02-24 12:07 | disposition home or self-care (01) ==
LOC: PHED 10:21
DX: R60.0 Localized edema (principal); E78.00 Pure hypercholesterolemia, unspecified; I10 Essential (primary) hypertension; F17.210 Nicotine dependence, cigarettes, uncomplicated
CPT/HCPCS: 93970